=== PATIENT | female | born 1950 | race Caucasian/White ===

== ENCOUNTER 2019-08-13 08:00 | Day surgery (SDC) | payer MEDICARE, OTHER ==
[~2019-08-13 08:00] MED LIST: CEFAZOLIN SODIUM 2 GM in DEXTROSE 5%-WATER 100 ML IV PRN; DEXAMETHASONE SOD PHOSPHATE INJ 4 MG/1 ML VIAL ONE; FENTANYL CITRATE INJ/PF 100 MCG/2 ML AMPUL ONE; MIDAZOLAM 2 MG/2 ML INJ ONE; ONDANSETRON HCL INJ/PF 4 MG/2 ML SDV ONE; PROPOFOL INJ 200 MG/20 ML VIAL IV ONE
[2019-08-13 09:04] LABS: HEMATOCRIT 41.1 % (36.0-47.0); HEMOGLOBIN 14.3 g/dL (12.0-15.5); MEAN CORPUSCULAR HEMOGLOBIN 33.6 pg (27.0-33.4); MEAN CORPUSCULAR HGB CONC 34.7 g/dL (32.0-36.0); MEAN CORPUSCULAR VOLUME 97 fl (80-97); PLATELET COUNT 320 10^3/uL (150-450); RED BLOOD COUNT 4.24 10^6/uL (3.72-5.28); RED CELL DISTRIBUTION WIDTH 12.5 % (11.5-14.0); WHITE BLOOD COUNT 5.6 10^3/uL (4.0-10.5)
[2019-08-13 09:28] LABS: ANION GAP 8 (5-19); BLOOD UREA NITROGEN 20 mg/dL (7-20); CALCIUM 10.2 mg/dL (8.4-10.2); CARBON DIOXIDE 31 mmol/L (22-30); CHLORIDE 104 mmol/L (98-107); GLUCOSE 86 mg/dL (75-110); POTASSIUM 5.3 mmol/L (3.6-5.0)
[2019-08-13] MEDS ORDERED: BUPIVACAINE HCL 0.25 % INJ/PF (2.5 MG/1 ML) 30 ML VIAL ONE (10:10)
[2019-08-13] MEDS ORDERED: DIPHENHYDRAMINE HCL 50 MG/ML VIAL IV PRN (11:01)
[2019-08-13] MEDS ORDERED: FENTANYL CITRATE INJ/PF 100 MCG/2 ML AMPUL IV PRN ×3 (11:01)
[2019-08-13] MEDS ORDERED: MORPHINE SULFATE 10 MG/ML INJ IV PRN (11:01)
[2019-08-13] MEDS ORDERED: MEPERIDINE HCL/PF INJ 25 MG/1 ML DISP.SYRIN IV PRN (11:01)
[2019-08-13] MEDS ORDERED: PROMETHAZINE HCL INJ 25 MG/1 ML VIAL IV PRN ×2 (11:01)
[2019-08-13] MEDS ORDERED: ONDANSETRON HCL INJ/PF 4 MG/2 ML SDV IV PRN ×2 (11:01→13:27)
--- NOTE | 2019-08-13 12:26 | Operative Report ---
Operative Report DATE OF SURGERY: 08/13/19 PREOPERATIVE DIAGNOSIS: Left wrist 3 part intra-articular distal radius fracture POSTOPERATIVE DIAGNOSIS: Left wrist 3 part intra-articular distal radius fracture OPERATION: 1. Open reduction internal fixation left distal radius fracture. 2. Brachioradialis tendon lengthening SURGEON: YOVANI CHANEY ANESTHESIA: GA COMPLICATIONS: None ESTIMATED BLOOD LOSS: Minimal INTRAOPERATIVE FINDINGS: Same PROCEDURE: Indications for procedure: The patient is a 68-year-old woman who sustained a low energy for fall resulting in a displaced, intra-articular fracture of the left distal radius. Description of procedure: Following the induction of a general anesthetic and administration of 2 g of Ancef, the patient was positioned supine on the operating room table. All bony prominences were padded. The left upper extremity was sterilely prepped with ChloraPrep and draped in standard fashion. Volar approach the distal radius was performed. Sharp incision was performed through skin. Blunt dissection was performed to the subcutaneous tissue. The radial artery was identified and protected. The volar and dorsal sheaths of the FCR tendon were opened. The space of Parona was opened bluntly. The pronator quadratus was taken off the radius and an L-shaped flap. The fracture was identified. The most radial fragment was depressed and rotated. The brachioradialis was therefore step cut in a Z fashion to allow mobility of the radial styloid fragment. The radial styloid fragment as well as the central ulnar fragments were mobilized, reduced, and clamped into position. A volar plate from the [employer] system was applied. Clamps were then reapplied maintaining the fragments in anatomic alignment as well as reducing the diastases between the radial and ulnar fragments. Multiple locking screws were placed unit cortically in the distal fragment. Bicortical locking screws were placed proximally in the plate. Image intensification was brought in which confirmed good alignment of the fracture and correct placement of implants. The wound was copiously irrigated. The pronator quadratus was repaired back using 3-0 Vicryl suture. The subcutaneous tissue was closed with 3-0 Vicryl. The skin was reapproximated with a subcuticular Monocryl suture. 0.25% Marcaine was injected into the wound for postoperative analgesia and a bulky sterile dressing was applied. A volar splint was then applied. The patient tolerated the procedure well without complication and was brought to recovery room in stable condition.
[2019-08-13] MEDS ORDERED: LIDOCAINE 2% INJ (20 MG/ML) 20 ML MDV ONE (12:33)
[2019-08-13] MEDS ORDERED: ROPIVACAINE HCL 0.5% INJ/PF (5 MG/1 ML) 30 ML SDV ONE (12:33)
[2019-08-13] MEDS ORDERED: LIDOCAINE 2%/EPINEPHRINE INJ 20 ML VIAL ONE (12:33)
[2019-08-13] MEDS ORDERED: OXYCODONE-ACETAMINOPHEN 5-325 MG TABLET PO PRN (13:30)
[2019-08-13] MEDS ORDERED: OXYCODONE-ACETAMINOPHEN 5-325 MG TABLET ONE (13:54)
--- NOTE | 2019-08-13 15:07 | EKG REPORT ---
SEVERITY:- OTHERWISE NORMAL ECG - SINUS RHYTHM BORDERLINE LEFT AXIS DEVIATION : Confirmed by: Moshe Caraballo MD 13-Aug-2019 15:06:50
--- NOTE | 2019-08-13 16:17 | RADIOLOGY REPORT (SQ) ---
EXAM DESCRIPTION: WRIST LEFT 3 VIEWS; NO CHG FLUORO COMPLETED DATE/TIME: 08/13/2019 3:44 pm REASON FOR STUDY: ORIF LEFT WRIST ASST WITH FLUORO IN OR S32.592A OTH FRACTURE OF LEFT PUBIS, INIT ENCNTR FOR CLOSED COMPARISON: None. FLUOROSCOPY TIME: 12 seconds 4 digital radiographic images saved to PACS. TECHNIQUE: Intra-operative images acquired during surgical procedure to evaluate progress. NUMBER OF IMAGES: 4 digital radiographic images LIMITATIONS: None. FINDINGS: Intra procedural imaging and fluoro during left distal radius ORIF comminuted fracture. P flores see the operative report for further details IMPRESSION: IMAGE(S) OBTAINED DURING PROCEDURE. COMMENT: Quality ID [id number]: Final reports for procedures using fluoroscopy that document radiation exp osure indices, or exposure time and number of fluorographic images (if radiation exposure indices are not available) Please consult full operative report of the attending physician for description of the procedure. TECHNICAL DOCUMENTATION: JOB ID: [id number] [employer]- All Rights Reserved Reading location - IP/workstation name: [email or web address]
--- NOTE | 2019-08-13 16:17 | RADIOLOGY REPORT (SQ) ---
EXAM DESCRIPTION: WRIST LEFT 3 VIEWS; NO CHG FLUORO COMPLETED DATE/TIME: 08/13/2019 3:44 pm REASON FOR STUDY: ORIF LEFT WRIST ASST WITH FLUORO IN OR S32.592A OTH FRACTURE OF LEFT PUBIS, INIT ENCNTR FOR CLOSED COMPARISON: None. FLUOROSCOPY TIME: 12 seconds 4 digital radiographic images saved to PACS. TECHNIQUE: Intra-operative images acquired during surgical procedure to evaluate progress. NUMBER OF IMAGES: 4 digital radiographic images LIMITATIONS: None. FINDINGS: Intra procedural imaging and fluoro during left distal radius ORIF comminuted fracture. P flores see the operative report for further details IMPRESSION: IMAGE(S) OBTAINED DURING PROCEDURE. COMMENT: Quality ID [id number]: Final reports for procedures using fluoroscopy that document radiation exp osure indices, or exposure time and number of fluorographic images (if radiation exposure indices are not available) Please consult full operative report of the attending physician for description of the procedure. TECHNICAL DOCUMENTATION: JOB ID: [id number] [employer]- All Rights Reserved Reading location - IP/workstation name: [email or web address]
[2019-08-13 18:42] VITALS: BP 153/85
== END 2019-08-13 14:40 | disposition home or self-care (01) ==
LOC: OROUT 08:00
PROVIDERS: ATTEND Orthopaedic Surgery
DX: S52.592A Other fractures of lower end of left radius, initial encounter for closed fracture (principal); W01.0XXA Fall on same level from slipping, tripping and stumbling without subsequent striking against object, initial encounter; E03.9 Hypothyroidism, unspecified; Z79.899 Other long term (current) drug therapy
CPT/HCPCS: 36415; 85027; 80048; 73110; 93005; 93010; 01830; 25609; J2795; J2250; J3490 ×2; J0690; J1100; J3010; A9270; J2405; J7060; J2704